=== PATIENT | male | born 1975 | race Caucasian/White ===

== ENCOUNTER 2018-07-02 15:44 | Emergency (ER) | payer OTHER ==
[~2018-07-02] VITALS: Ht 182.9 cm; Wt 99.8 kg
[~2018-07-02 15:44] MED LIST: Cefpodoxime Pr100 MG PO; SUBOXONE 12 MG1 EACH
== END 2018-07-02 16:43 | disposition home or self-care (01) ==
LOC: ER 15:44
DX: R31.9 Hematuria, unspecified (principal); Z87.442 Personal history of urinary calculi; Z79.899 Other long term (current) drug therapy; F17.200 Nicotine dependence, unspecified, uncomplicated
CPT/HCPCS: 74018; 99282-25

== ENCOUNTER 2019-08-12 16:40 | Emergency (ER) | payer OTHER ==
[~2019-08-12] VITALS: Ht 185.4 cm; Wt 99.8 kg
[2019-08-12] MEDS ORDERED: Robaxin-750750 MG PO (19:23)
== END 2019-08-12 19:35 | disposition home or self-care (01) ==
LOC: ER 16:40
DX: M54.6 Pain in thoracic spine (principal); M54.2 Cervicalgia; V49.9XXA Car occupant (driver) (passenger) injured in unspecified traffic accident, initial encounter; Z79.899 Other long term (current) drug therapy; F17.200 Nicotine dependence, unspecified, uncomplicated
CPT/HCPCS: 72125; 72128; 96372; 99283-25; J1885

== ENCOUNTER 2021-02-15 01:25 | Emergency (ER) | payer OTHER ==
[~2021-02-15] VITALS: Ht 182.9 cm; Wt 104.3 kg
[~2021-02-15 01:25] MED LIST changes: +Robaxin-750750 MG PO
[2021-02-15] MEDS ORDERED: METH40 (02:22)
== END 2021-02-15 02:33 | disposition home or self-care (01) ==
LOC: ER 01:25
DX: I83.92 Asymptomatic varicose veins of left lower extremity (principal); F17.200 Nicotine dependence, unspecified, uncomplicated
CPT/HCPCS: 99284

== ENCOUNTER 2021-05-11 12:12 | Emergency (ER) | payer OTHER ==
[~2021-05-11] VITALS: Ht 182.9 cm; Wt 99.8 kg
[~2021-05-11 12:12] MED LIST changes: +METH40
== END 2021-05-11 13:17 | disposition home or self-care (01) ==
LOC: ER 12:12
DX: G56.03 Carpal tunnel syndrome, bilateral upper limbs (principal)
CPT/HCPCS: 99283

== ENCOUNTER 2022-05-17 17:42 | Emergency (ER) | payer OTHER ==
[~2022-05-17] VITALS: Ht 182.9 cm; Wt 99.8 kg
[2022-05-17] MEDS ORDERED: Veetids 500500 MG PO (20:05)
== END 2022-05-17 20:21 | disposition home or self-care (01) ==
LOC: ER 17:42
DX: K08.89 Other specified disorders of teeth and supporting structures (principal); F17.200 Nicotine dependence, unspecified, uncomplicated
CPT/HCPCS: 99282

== ENCOUNTER 2022-05-26 09:58 | Emergency (ER) | payer OTHER ==
[~2022-05-26] VITALS: Ht 182.9 cm; Wt 99.8 kg
[~2022-05-26 09:58] MED LIST changes: +Veetids 500500 MG PO
[2022-05-26 11:40] LABS: Influenza A, PCR NEGATIVE (NEGATIVE); Influenza B, PCR NEGATIVE (NEGATIVE); Resp Syncytial Virus, PCR NEGATIVE (NEGATIVE); SARS-Cov-2 (COVID-19) PCR, MMC NEGATIVE (NEGATIVE)
== END 2022-05-26 13:30 | disposition home or self-care (01) ==
LOC: ER 09:58
PROVIDERS: Student in an Organized Health Care Education/Training Program
DX: R05.9 Cough, unspecified (principal); K08.89 Other specified disorders of teeth and supporting structures; F17.210 Nicotine dependence, cigarettes, uncomplicated; Z20.822 Contact with and (suspected) exposure to COVID-19
CPT/HCPCS: 0241U; 71046

== ENCOUNTER 2022-09-09 20:11 | Emergency (ER) | payer OTHER ==
[~2022-09-09] VITALS: Ht 182.9 cm; Wt 90.7 kg
== END 2022-09-09 22:38 | disposition home or self-care (01) ==
LOC: ER 20:11
DX: R21 Rash and other nonspecific skin eruption (principal); F17.200 Nicotine dependence, unspecified, uncomplicated
CPT/HCPCS: 99282